=== PATIENT | female | born 1970 | race Two or more races ===

== ENCOUNTER 2023-11-29 11:55 | Emergency (ER) | payer OTHER ==
[~2023-11-29] VITALS: Ht 152.4 cm; Wt 58.1 kg
[2023-11-29] MEDS ORDERED: ORPHENADRINE CITRATE 30 MG/ML AMPUL IM ONE (12:45)
[2023-11-29] MEDS ORDERED: KETOROLAC TROMETHAMINE 60 MG VIAL IM ONE ×2 (12:45→13:29)
[2023-11-29] MEDS ORDERED: ORPHENADRINE CITRATE 30 MG/ML AMPUL ONE (13:29)
[2023-11-29] MEDS ORDERED: KETO10TA2 PO (15:04)
== END 2023-11-29 15:17 | disposition home or self-care (01) ==
LOC: ER 11:57
DX: M25.571 Pain in right ankle and joints of right foot (principal)

== ENCOUNTER 2024-08-27 14:21 | Emergency (ER) | payer OTHER ==
[~2024-08-27] VITALS: Ht 152.4 cm; Wt 49.0 kg
[~2024-08-27 14:21] MED LIST: KETO10TA2 PO
[2024-08-27 17:19] LABS: BASO % 0.4 % (0.1-1.2); EOS # 0.03 (0.04-0.54); EOS % 0.6 % (0.7-7.0); HEMATOCRIT 40.5 % (34.1-44.9); HEMOGLOBIN 13.5 g/dL (11.2-15.7); LYMPH # 1.72 (1.18-3.74); LYMPH % 34.8 % (19.3-53.1); MEAN CORPUSCULAR HEMOGLOBIN 27.3 pg (25.6-32.2); MONO # 0.45 (0.24-0.82); MONO % 9.1 % (4.7-12.5); NEUT # 2.71 (1.56-6.13); NEUT % 54.9 % (34.0-71.1); PLATELET COUNT 283 K/uL (163-369); RED BLOOD COUNT 4.94 M/uL (3.93-5.22); RED CELL DISTRIBUTION WIDTH 12.6 % (11.6-14.4)
[2024-08-27 17:30] LABS: COVID-19 AG NEGATIVE (NEGATIVE)
[2024-08-27 17:42] LABS: INFLUENZA A AG NEGATIVE (NEGATIVE)
== END 2024-08-27 18:42 | disposition home or self-care (01) ==
LOC: ER 14:49
PROVIDERS: General Practice
DX: J06.9 Acute upper respiratory infection, unspecified (principal); Z20.822 Contact with and (suspected) exposure to COVID-19